=== PATIENT | male | born 1945 | race Caucasian/White ===

== ENCOUNTER 2017-06-07 03:16 | Inpatient (IN) | payer OTHER ==
[~2017-06-07] VITALS: Ht 180.3 cm; Wt 85.7 kg
[~2017-06-07 03:16] MED LIST: NAPR-688 PO
[2017-06-07 04:47] VITALS: Ht 180.3 cm; Wt 85.7 kg
[2017-06-07 04:50] VITALS: BP 175/86; PULSE 107; RESP 18
[2017-06-07] MEDS ORDERED: ALBU18HF INHALATION (05:18)
[2017-06-07] MEDS ORDERED: ACETAMINOPHEN 325 MG TAB PO PRN (05:30)
[2017-06-07] MEDS ORDERED: LEVALBUTEROL (NEB) 0.63 MG/3 ML AMP HHN PRN (05:30)
[2017-06-07] MEDS ORDERED: IPRATROPIUM (NEB) 0.5 MG/2.5 ML AMP HHN PRN (05:30)
[2017-06-07] MEDS ORDERED: hydrALAzine 20 MG INJ IV PRN (05:30)
[2017-06-07] MEDS ORDERED: ONDANSETRON 4 MG INJ IV PRN (05:30)
[2017-06-07] MEDS ORDERED: morphine 2 MG INJ IV PRN (05:30)
[2017-06-07] MEDS ORDERED: NACL 0.9% 3 ML SYG IV SCH (05:30)
[2017-06-07] MEDS: AMLODIPINE 10 MG TAB PO SCH ×2 (06:07→08:19)
[2017-06-07 06:34] LABS: ADD SCAN DIFF NO
--- NOTE | 2017-06-07 06:41 | HP ---
Date/Time of Note Date/Time of Note DATE: 06/07/17 TIME: 06:33 Assessment/Plan VTE Prophylaxis VTE Prophylaxis Intervention: heparin Lines/Catheters IV Catheter Type (from Nrs): Saline Lock Assessment/Plan Assessment/Plan 1. Asthma exacerbation - will be treated with albuterol, Atrovent and Solu-Medrol. - given his significant cough which at times is productive, I will start him on antibiotic. 2. Hyponatremia -This is mild and based on the labs from outside hospital. Will check a.m. labs and will go from there so for now will just gonna monitor . HPI/ROS Admit Date/Time Admit Date/Time Jun 07, 2017 at 04:38 Hx of Present Illness This is a 71-year-old male with a history of asthma who was transferred from an outside hospital because of insurance reasons after he initially presented with shortness of breath and wheezing. He also reported cough at times was productive of whitish sputum. He uses albuterol at home and recently he said that he has been using it with increased frequency. He was treated with albuterol and Atrovent and was given a dose of Solu-Medrol before he was transferred here. Currently he still has wheezing but stated that he is feeling much more better. He denies chest pain, fever chills, nausea or vomiting. PMH/Family/Social Past Medical History Asthma Social History Smoking Status: Former smoker Exam/Review of Systems Vital Signs Vitals Vital Signs Date Time Temp Pulse Resp B/P Pulse Ox O2 Delivery O2 Flow Rate FiO2 06/07/17 05:18 Nasal Cannula 2.0 06/07/17 04:50 98.4 107 18 175/86 95 Exam Constitutional: alert, oriented, well developed Head: atraumatic, normocephalic Eyes: EOMI, PERRL Respiratory: wheezing Cardiovascular: nl pulses, regular rate and rhythm Gastrointestinal: non-tender, soft Extremities: normal pulses Medications Medications Current Medications Ondansetron HCl (Zofran Inj) 4 mg Q6H PRN IV NAUSEA AND/OR VOMITING; Start at 05:30 Acetaminophen (Tylenol Tab) 650 mg Q6H PRN PO PAIN LEVEL 1-3 OR FEVER; Start at 05:30 Morphine Sulfate (morphine) 2 mg Q4H PRN IV SEVERE PAIN LEVEL 7-10; Start 06/07 at 05:30 Heparin Sodium (Porcine) (Heparin (5000 Units/0.5 ml)) 5,000 unit Q12 SC ; Start 06/07/17 at 09:00 Albuterol (Proventil (O.r. Use Only)) 2 puff Q4H INH ; Start 06/07/17 at 05:30; Status UNV Amlodipine Besylate (Norvasc) 10 mg DAILY PO Last administered on 06/07/17t 06: 07; Admin Dose 10 MG; Start 06/07/17 at 05:30 Hydralazine HCl (Apresoline) 10 mg Q4H PRN IV SBP > 160; Start 06/07/17 at 05: 30 Methylprednisolone Sodium Succinate (Solu-Medrol) 80 mg Q12 IV ; Start 06/07/17 at 09:00 CHERRY SPENCER MD Jun 07, 2017 06:41
[2017-06-07 07:16] LABS: ALBUMIN 4.2 g/dl (3.3-4.9); ALBUMIN/GLOBULIN RATIO 1.02; BILIRUBIN,INDIRECT 0.1 mg/dl (0-1.1); BILIRUBIN,TOTAL 0.1 mg/dl (0.2-1.3); CALCIUM 9.5 mg/dl (8.4-10.2); CREATININE 0.92 mg/dl (0.61-1.24); MAGNESIUM 1.8 mg/dl (1.7-2.5); PHOSPHORUS 3.9 mg/dl (2.5-4.9); POTASSIUM 3.9 mmol/L (3.5-5.1); TOTAL PROTEIN 8.3 g/dl (6.1-8.1)
[2017-06-07 07:27] VITALS: BP 157/72; RESP 16
[2017-06-07] MEDS: METHYLPREDNISOLONE 125 MG INJ IV SCH ×3 (09:00→21:43)
[2017-06-07] MEDS: ALBUTEROL HFA 8 GM INHALER INH SCH ×4 (09:00→21:50)
[2017-06-07] MEDS ORDERED: METHYLPREDNISOLONE 125 MG INJ IV SCH (09:00)
[2017-06-07] MEDS: LEVALBUTEROL (NEB) 0.63 MG/3 ML AMP HHN SCH ×4 (09:36→20:26)
[2017-06-07] MEDS: IPRATROPIUM (NEB) 0.5 MG/2.5 ML AMP HHN SCH ×4 (09:36→20:26)
[2017-06-07] MEDS: HEPARIN 5,000 UNIT/0.5 ML VIAL SC SCH ×2 (10:10→21:42)
[2017-06-07 10:35] LABS: ABNORMAL IP MESSAGE 1; BASOPHILS % 0.2 % (0.0-2.0); HEMATOCRIT 47.9 % (42.0-52.0); HEMOGLOBIN 15.6 g/dl (14.0-18.0); LYMPHOCYTES # 0.4 10^3/ul (0.8-2.9); LYMPHOCYTES % 5.9 % (15.0-51.0); MEAN CORPUSCULAR HEMOGLOBIN 29.4 pg (29.0-33.0); MEAN CORPUSCULAR HGB CONC 32.6 g/dl (32.0-37.0); MEAN CORPUSCULAR VOLUME 90.2 fl (82.0-101.0); MEAN PLATELET VOLUME 10.4 fl (7.4-10.4); MONOCYTE # 0.1 10^3/ul (0.3-0.9); MONOCYTES % 0.9 % (0.0-11.0); NEUTROPHILS % 92.5 % (39.0-77.0); PLATELET COUNT 230 10^3/UL (140-415); RED BLOOD COUNT 5.31 10^6/ul (4.70-6.10); RED CELL DISTRIBUTION WIDTH 14.4 % (11.5-14.5); WHITE BLOOD COUNT 6.5 10^3/ul (4.8-10.8)
[2017-06-07] MEDS: AZITHROMYCIN 250 MG TAB PO SCH (11:38)
--- NOTE | 2017-06-07 14:03 | PN ---
Date/Time of Note Date/Time of Note DATE: 06/07/17 TIME: 14:02 Assessment/Plan VTE Prophylaxis VTE Prophylaxis Intervention: SCD's Lines/Catheters IV Catheter Type (from [facility]): Saline Lock Assessment/Plan Chief Complaint/Hosp Course Patient is a 71-year-old male with a past medical history of asthma who presented to another hospital for asthma exacerbation and was transferred to [facility] for insurance reasons. Currently admitted for asthma exacerbation Assessment Asthma exacerbation Shortness of breath Hyperglycemia Plan -Breathing treatments, steroids, antibiotic -Patient doing well but will keep another day due to possible relapse in exacerbation -Continue azithromycin -We will likely DC tomorrow with meds Isrrael Benavides DO Problems: Subjective 24 Hr Interval Summary Free Text/Dictation feels much better Exam/Review of Systems Vital Signs Vitals Vital Signs Date Time Temp Pulse Resp B/P Pulse Ox O2 Delivery O2 Flow Rate FiO2 06/07/17 12:55 95 2.0 06/07/17 12:55 108 22 Nasal Cannula 06/07/17 09:36 21 06/07/17 07:27 97.9 157/72 Exam Physical exam General: Patient is laying in bed and answers questions appropriately Mentation: Patient is alert and oriented 4, Head: Normocephalic atraumatic Eyes: EOMI, pupils reactive to light Neck: Supple, nontender, midline Respiratory: wheezing to auscultation bilaterally Cardiovascular: regular rate, no obvious murmurs Gastrointestinal: non-tender to palpation, bowel sounds heard. Neurological: Moves all extremities spontaneously Skin: No new skin lesions Results Result Diagram: 06/07/17 0557 06/07/17 0556 Results 24 hrs Laboratory Tests Test 06/07/17 05:56 06/07/17 05:57 Sodium Level 138 Potassium Level 3.9 Chloride Level 97 Carbon Dioxide Level 24 Anion Gap 21 H Blood Urea Nitrogen 17 Creatinine 0.92 Glucose Level 221 H Calcium Level 9.5 Phosphorus Level 3.9 Magnesium Level 1.8 Total Bilirubin 0.1 L Direct Bilirubin 0.00 Indirect Bilirubin 0.1 Aspartate Amino Transf (AST/SGOT) 37 Alanine Aminotransferase (ALT/SGPT) 37 Alkaline Phosphatase 80 Total Protein 8.3 H Albumin 4.2 Globulin 4.10 H Albumin/Globulin Ratio 1.02 White Blood Count 6.5 Red Blood Count 5.31 Hemoglobin 15.6 Hematocrit 47.9 Mean Corpuscular Volume 90.2 Mean Corpuscular Hemoglobin 29.4 Mean Corpuscular Hemoglobin Concent 32.6 Red Cell Distribution Width 14.4 Platelet Count 230 Mean Platelet Volume 10.4 # Neutrophils % 92.5 H Lymphocytes % 5.9 L Monocytes % 0.9 Eosinophils % 0.0 Basophils % 0.2 Neutrophils # 6.0 Lymphocytes # 0.4 L Monocytes # 0.1 L Eosinophils # 0.0 Basophils # 0.0 Nucleated Red Blood Cells # 0.0 Medications Medications Current Medications Ondansetron HCl (Zofran Inj) 4 mg Q6H PRN IV NAUSEA AND/OR VOMITING; Start at 05:30 Acetaminophen (Tylenol Tab) 650 mg Q6H PRN PO PAIN LEVEL 1-3 OR FEVER; Start at 05:30 Morphine Sulfate (morphine) 2 mg Q4H PRN IV SEVERE PAIN LEVEL 7-10; Start 06/07 at 05:30 Heparin Sodium (Porcine) (Heparin (5000 Units/0.5 ml)) 5,000 unit Q12 SC Last administered on 06/07/17 10:10; Admin Dose 5,000 UNIT; Start 06/07/17 at 09:00 Amlodipine Besylate (Norvasc) 10 mg DAILY PO Last administered on 06/07/17 08: 19; Admin Dose 10 MG; Start 06/07/17 at 05:30 Hydralazine HCl (Apresoline) 10 mg Q4H PRN IV SBP > 160; Start 06/07/17 at 05: 30 Methylprednisolone Sodium Succinate (Solu-Medrol) 80 mg Q8 IV ; Start 06/07/17 at 09:00 Azithromycin (Zithromax) 500 mg DAILY PO Last administered on 06/07/17 11:38; Admin Dose 500 MG; Start 06/07/17 at 09:00 ISRRAEL BENAVIDES Jun 07, 2017 14:03
[2017-06-07 20:00] VITALS: BP 122/71; PULSE 94; RESP 18
[2017-06-08] MEDS: LEVALBUTEROL (NEB) 0.63 MG/3 ML AMP HHN SCH ×2 (00:51→04:48)
[2017-06-08] MEDS: IPRATROPIUM (NEB) 0.5 MG/2.5 ML AMP HHN SCH ×5 (00:51→16:44)
[2017-06-08 02:00] VITALS: BP 137/76; PULSE 92; RESP 18
[2017-06-08] MEDS: ALBUTEROL 18 GM INHALER INH SCH ×5 (02:20→17:00)
[2017-06-08] MEDS: METHYLPREDNISOLONE 125 MG INJ IV SCH ×2 (05:55→13:26)
[2017-06-08 06:17] LABS: BASOPHILS % 0.1 % (0.0-2.0); HEMATOCRIT 47.4 % (42.0-52.0); HEMOGLOBIN 15.8 g/dl (14.0-18.0); LYMPHOCYTES # 0.6 10^3/ul (0.8-2.9); LYMPHOCYTES % 4.4 % (15.0-51.0); MEAN CORPUSCULAR HEMOGLOBIN 29.6 pg (29.0-33.0); MEAN CORPUSCULAR HGB CONC 33.3 g/dl (32.0-37.0); MEAN CORPUSCULAR VOLUME 88.9 fl (82.0-101.0); MEAN PLATELET VOLUME 9.7 fl (7.4-10.4); MONOCYTE # 0.3 10^3/ul (0.3-0.9); MONOCYTES % 2.3 % (0.0-11.0); NEUTROPHIL # 12.7 10^3/ul (1.6-7.5); NEUTROPHILS % 92.4 % (39.0-77.0); PLATELET COUNT 234 10^3/UL (140-415); RED BLOOD COUNT 5.33 10^6/ul (4.70-6.10); RED CELL DISTRIBUTION WIDTH 14.3 % (11.5-14.5); WHITE BLOOD COUNT 13.7 10^3/ul (4.8-10.8)
[2017-06-08 06:55] LABS: CALCIUM 10.1 mg/dl (8.4-10.2); CREATININE 0.9 mg/dl (0.61-1.24); MAGNESIUM 2.1 mg/dl (1.7-2.5); POTASSIUM 4.3 mmol/L (3.5-5.1)
[2017-06-08 08:07] VITALS: BP 145/78; RESP 20
[2017-06-08] MEDS: AMLODIPINE 10 MG TAB PO SCH (09:11)
[2017-06-08] MEDS: AZITHROMYCIN 250 MG TAB PO SCH (09:12)
[2017-06-08] MEDS: HEPARIN 5,000 UNIT/0.5 ML VIAL SC SCH (09:16)
[2017-06-08 13:36] VITALS: BP 153/72; RESP 18
[2017-06-08] MEDS ORDERED: MED4DP PO (13:49)
[2017-06-08] MEDS ORDERED: ADV25050 INHALATION (13:49)
[2017-06-08] MEDS ORDERED: ALBU18HF INHALATION (13:49)
[2017-06-08] MEDS ORDERED: METF500T4 PO (13:49)
[2017-06-08] MEDS ORDERED: AZIT250T6 PO (13:49)
--- NOTE | 2017-06-08 13:51 | PDOCDIS ---
Discharge Instructions DIAGNOSIS Discharge Diagnosis asthma exacerbation CONDITION Patient Condition: Stable HOME CARE INSTRUCTIONS: Diet Instructions: Reduced Calorie ACTIVITY: Activity Restrictions: Slowly Increase Activity FOLLOW UP/APPOINTMENTS Follow-up Plan Please follow up with your primary care provider as soon as possible. Finish all medications SHAHLA BENAVIDES Jun 08, 2017 13:51
--- NOTE | 2017-06-08 13:54 | DS ---
Date/Time of Note Date/Time of Note DATE: 06/08/17 TIME: 13:53 Discharge Summary Admission/Discharge Info Admit Date/Time Jun 07, 2017 at 04:38 Discharge Date/Time Discharge Diagnosis asthma exacerbation Patient Condition: Stable Hx of Present Illness This is a 71-year-old male with a history of asthma who was transferred from an outside hospital because of insurance reasons after he initially presented with shortness of breath and wheezing. He also reported cough at times was productive of whitish sputum. He uses albuterol at home and recently he said that he has been using it with increased frequency. He was treated with albuterol and Atrovent and was given a dose of Solu-Medrol before he was transferred here. Currently he still has wheezing but stated that he is feeling much more better. He denies chest pain, fever chills, nausea or vomiting. Hospital Course Patient is a 71-year-old male with a past medical history of asthma who presented to another hospital for asthma exacerbation and was transferred to [facility] for insurance reasons. Currently admitted for asthma exacerbation Assessment Asthma exacerbation Shortness of breath Hyperglycemia diabetes mellitus, new diagnosis Physical exam Patient is a 71-year-old male with past medical history of asthma who was admitted for asthma exacerbation. Patient received steroids, SVNs, and antibiotics during this admission and quickly recovered. Patient will be discharged with additional medications as his asthma is obviously not controlled. Patient will be started on Advair as well as his rescue inhaler and will be given a Medrol Dosepak. It was also incidentally found that the patient had an A1c of 6.7%. Patient is now diabetic and will be started on metformin. Patient understands that if his breathing worsens to return to the ED. Isrrael Benavides DO Home Meds Active Scripts Azithromycin* (Azithromycin*) 250 Mg Tablet, 250 MG PO DAILY for 4 Days, #4 TAB Prov:ISRRAEL BENAVIDES 06/08/17 Metformin Hcl* (Metformin Hcl*) 500 Mg Tablet, 500 MG PO WITH BREAKFAST DINNE for 30 Days, #60 TAB 2 Refills Prov:ISRRAEL BENAVIDES 06/08/17 Methylprednisolone* (Medrol* DOSE PACK) 4 Mg/Dose-Pack Tab.ds.pk, 4 MG PO . DIRECTED, #1 PACKET Prov:ISRRAEL BENAVIDES 06/08/17 Salmeterol Xinaf/Fluticasone* (Advair*) 250-50 Diskus Inhaler, 1 INH INHALATION BID for 30 Days, #1 INHALER 2 Refills Prov:ISRRAEL BENAVIDES 06/08/17 Albuterol Sulfate* (Ventolin HFA*) 18 Gm Hfa.aer.ad, 2 PUFF INHALATION Q4H Y for SHORTNESS OF BREATH for 30 Days, #1 INHALER 2 Refills Prov:ISRRAEL BENAVIDES 06/08/17 Discontinued Reported Medications Naproxen* (Naproxen*) 500 Mg Tablet, 500 MG PO BID Y for PAIN, TAB 01/14/15 Primary Care Provider [place] Time spent on discharge: > 30 minutes Pending Labs Laboratory Tests Test 06/08/17 06:01 White Blood Count 13.710^3/ul (4.8-10.8) Red Blood Count 5.3310^6/ul (4.70-6.10) Hemoglobin 15.8g/dl (14.0-18.0) Hematocrit 47.4% (42.0-52.0) Mean Corpuscular Volume 88.9fl (82.0-101.0) Mean Corpuscular Hemoglobin 29.6pg (29.0-33.0) Mean Corpuscular Hemoglobin Concent 33.3g/dl (32.0-37.0) Red Cell Distribution Width 14.3% (11.5-14.5) Platelet Count 40589^3/UL (140-415) Mean Platelet Volume 9.7fl (7.4-10.4) Neutrophils % 92.4% (39.0-77.0) Lymphocytes % 4.4% (15.0-51.0) Monocytes % 2.3% (0.0-11.0) Eosinophils % 0.0% (0.0-7.0) Basophils % 0.1% (0.0-2.0) Nucleated Red Blood Cells % 0.0/100WBC (0.0-0.0) Neutrophils # 12.710^3/ul (1.6-7.5) Lymphocytes # 0.610^3/ul (0.8-2.9) Monocytes # 0.310^3/ul (0.3-0.9) Eosinophils # 0.010^3/ul (0.0-0.5) Basophils # 0.010^3/ul (0.0-0.1) Nucleated Red Blood Cells # 0.010^3/ul (0.0-0.0) Sodium Level 144mmol/L (135-144) Potassium Level 4.3mmol/L (3.5-5.1) Chloride Level 101mmol/L (97-110) Carbon Dioxide Level 26mmol/L (21-31) Anion Gap 21 (8-16) Blood Urea Nitrogen 18mg/dl (7-20) Creatinine 0.90mg/dl (0.61-1.24) Glucose Level 225mg/dl (70-220) Hemoglobin A1c 6.7% (0-5.9) Calcium Level 10.1mg/dl (8.4-10.2) Phosphorus Level 3.0mg/dl (2.5-4.9) Magnesium Level 2.1mg/dl (1.7-2.5) ISRRAEL BENAVIDES Jun 08, 2017 13:54
== END 2017-06-08 17:50 | disposition home or self-care (01) | DRG 203 ==
LOC: MS2 04:38
PROVIDERS: ADMIT Internal Medicine; ATTEND Internal Medicine
DX: J45.901 Unspecified asthma with (acute) exacerbation (principal); E11.65 Type 2 diabetes mellitus with hyperglycemia
CPT/HCPCS: 80048; 80053; 83036; 83735; 84100; 85025; 94640; 94664; J1644; J2930

== ENCOUNTER 2018-03-13 05:26 | Emergency (ER) | END 2018-03-13 10:24 | disposition home or self-care (01) ==